=== PATIENT | male | born 1935 | race Caucasian/White ===

== ENCOUNTER 2018-07-17 09:09 | Outpatient (CLI) | payer MEDICARE, BC ==
--- NOTE | 2018-07-17 11:35 | ULT ---
ABDOMINAL ULTRASOUND: HISTORY: Abdominal pain. TECHNIQUE: Real-time imaging of the upper abdomen was performed. FINDINGS: This shows echogenic, nonshadowing densities adhere to the gallbladder wall, suggestive of small poly ps. These are in the 2 to 3 mm range. The common duct is 4 mm. The technologist reports a negative ultrasound Valle sign. The liver is heterogeneous in echotexture. It measures 15.3 cm. The splee n is 10.7 cm in length. The right and left kidneys are within normal limits in size and not obstructed. The pancreas, abdominal aorta, and IVC regions are unremarkable. IMPRESSION: 1. Small gallbladder polyps. 2. Heterogeneous echotexture to the liver without focal mass. This probably represents fatty change . POS: [facility]
== END 2018-07-17 09:10 | disposition home or self-care (01) ==
LOC: BICULT 09:09
PROVIDERS: ATTEND Internal Medicine Gastroenterology
DX: K52.9 Noninfective gastroenteritis and colitis, unspecified (principal); R10.30 Lower abdominal pain, unspecified; Z86.010 Personal history of colon polyps; K82.4 Cholesterolosis of gallbladder
CPT/HCPCS: 76700